=== PATIENT | male | born 1950 | race Caucasian/White ===

== ENCOUNTER 2018-09-14 07:11 | Emergency (ER) | payer MEDICARE, OTHER ==
--- NOTE | 2018-09-14 07:18 | ED Physician Documentation ---
PD HPI CHEST PAIN - Stated complaint Stated Complaint: CHEST PX - History obtained from History obtained from: Patient - History of Present Illness Timing - onset: How many hours ago (4 1/2), Last night (about 3 am) Timing - onset during: Sleep Timing - duration: Hours Timing - details: Abrupt onset, Still present Quality: Pressure, Tightness, Other (like prior episodes of recurrent atrial fib) Location: Substernal, Left chest Radiation: No: Jaw, Neck, Back Worsened by: No: Exertion, Inspiration, Movement Associated symptoms: Palpitations (feels heart rate was abruptly fast.). No: Shortness of air, Nausea, Feeling faint / dizzy Similar symptoms before: Diagnosis (episodic atrial fib, with last episode 2014, initially in 2006. Has only had it a few times.) Recently seen: Not recently seen Review of Systems Constitutional: denies: Fever, Chills, Myalgias Nose: denies: Rhinorrhea / runny nose, Congestion Throat: denies: Sore throat Respiratory: denies: Cough GI: denies: Abdominal Pain, Nausea, Vomiting, Constipation, Diarrhea Musculoskeletal: reports: Extremity swelling (mild chronic both legs). denies: Neck pain, Back pain Neurologic: denies: Generalized weakness, Near syncope PD PAST MEDICAL HISTORY - Past Medical History Cardiovascular: Atrial fibrillation Respiratory: None Neuro: None Endocrine/Autoimmune: HyPOthyroidism GI: GERD : None HEENT: None Psych: None Musculoskeletal: Chronic back pain Derm: None - Present Medications Home Medications: Ambulatory Orders Medication Instructions Recorded Confirmed buPROPion [Wellbutrin Sr] 150 mg PO BID 05/03/14 05/03/14 - Allergies Allergies/Adverse Reactions: Allergies Allergy/AdvReac Type Severity Reaction Status Date / Time No Known Drug Allergies Allergy Verified 09/14/18 07:19 - Social History Does the pt smoke?: Yes Smoking Status: Current every day smoker PD ED PE NORMAL - Vitals Vital signs reviewed: Yes - General General: Alert and oriented X 3, No acute distress, Well developed/nourished - HEENT HEENT: Pharynx benign - Neck Neck: Supple, no meningeal sign, No adenopathy - Cardiac Cardiac: No murmur. No: RRR (very regular at 122.) - Respiratory Respiratory: Clear bilaterally - Abdomen Abdomen: Soft, Non tender - Derm Derm: Normal color, Warm and dry - Extremities Extremities: No deformity, No tenderness to palpate, Normal ROM s pain, No calf tenderness / cord, Other (1+ edema in both lower legs/ankles, not tender. ) - Neuro Neuro: Alert and oriented X 3, No motor deficit, Normal speech Results - Vitals Vitals: Vital Signs - 24 hr 09/14/18 09/14/18 09/14/18 07:15 08:34 08:50 Temperature 36.3 C L 36.2 C L Heart Rate 118 H 110 H 108 H Respiratory 20 22 17 Rate Blood Pressure 115/63 109/46 L 114/66 O2 Saturation 96 95 97 09/14/18 09/14/18 09:01 09:11 Temperature Heart Rate 107 H 68 Respiratory 17 27 H Rate Blood Pressure 120/91 H 105/75 O2 Saturation 96 94 Oxygen O2 Source Room air - EKG (time done) 07:23 Rate: Rate (enter#) (123) Rhythm: Atrial flutter Ischemia: Normal ST segments. No: ST elevation c/w ischemia, ST depression - Labs Labs: Laboratory Tests 09/14/18 09/14/18 09/14/18 07:30 07:30 07:30 WBC 5.9 RBC 5.28 Hgb 16.9 Hct 48.6 MCV 92.0 MCH 32.0 H MCHC 34.7 RDW 13.8 Plt Count 126 L MPV 10.6 Neut # (Auto) 4.0 Lymph # (Auto) 1.1 L Starke # (Auto) 0.7 Eos # (Auto) 0.1 Baso # (Auto) 0.1 Absolute Nucleated RBC 0.00 Nucleated RBC % 0.1 Manual Slide Review Indicated WBC Morphology NORMAL APPEARANCE Platelet Estimate DECREASED (<130,000) Platelet Morphology 1+ LARGE PLATELETS RBC Morph Micro Appear NORMAL APPEARANCE Sodium 139 Potassium 4.2 Chloride 103 Carbon Dioxide 24 Anion Gap 12.0 BUN 20 Creatinine 0.9 Estimated GFR (MDRD) 84 L Glucose 99 Calcium 9.3 Magnesium 2.2 Total Bilirubin 1.4 H AST 40 ALT 41 Alkaline Phosphatase 37 L Troponin I < 0.04 B-Natriuretic Peptide Total Protein 7.2 Albumin 3.9 Globulin 3.3 Albumin/Globulin Ratio 1.2 Lipase 32 09/14/18 07:30 WBC RBC Hgb Hct MCV MCH MCHC RDW Plt Count MPV Neut # (Auto) Lymph # (Auto) Starke # (Auto) Eos # (Auto) Baso # (Auto) Absolute Nucleated RBC Nucleated RBC % Manual Slide Review WBC Morphology Platelet Estimate Platelet Morphology RBC Morph Micro Appear Sodium Potassium Chloride Carbon Dioxide Anion Gap BUN Creatinine Estimated GFR (MDRD) Glucose Calcium Magnesium Total Bilirubin AST ALT Alkaline Phosphatase Troponin I B-Natriuretic Peptide 269 H Total Protein Albumin Globulin Albumin/Globulin Ratio Lipase - Rads (name of study) chest xray Radiology: Prelim report reviewed (no infiltrates nor acute process. ), See rad report PD MEDICAL DECISION MAKING - ED course Complexity details: reviewed results, re-evaluated patient, considered differential (heart rate slowed to under 100. Then targeted rhythm control and gave procainamide. He converted to NSR about 15 minutes into the infusion, and it was discontinued. He is stable and feels okay. ), d/w patient Departure - Departure Disposition: 01 Home, Self Care Clinical Impression: Episodic atrial fibrillation Condition: Stable Record reviewed to determine appropriate education?: Yes Instructions: ED Afib Follow-Up: DIMPLE BEDOYA DO [Primary Care Provider] - Comments: Follow-up with your primary care as they will likely want to do a outpatient heart monitor which will record your rhythm over 3 to 7 days and see if you have episodes of fibrillation you not aware of. If so they can do other treatments or potentially have you on medications to keep it from recurring. If your episodes are years apart as the current pattern, then no particular reason for daily medications per se. Discharge Date/Time: 09/14/18 10:00
[2018-09-14] MEDS ORDERED: SODIUM CHLORIDE 0.9% 1,000 ML IV ONE (07:38)
[2018-09-14] MEDS ORDERED: METOPROLOL 5 MG/5 ML VIAL IVP STA (07:38)
[2018-09-14] MEDS ORDERED: MAG HYDROX/AL HYDROX/SIMETH 30 ML UDC PO STA (07:39)
[2018-09-14 07:48] LABS: BASOPHILS # (AUTO) 0.1 10^3/uL (0.0-0.1); BASOPHILS % (AUTO) 1.2 %; EOSINOPHILS # (AUTO) 0.1 10^3/uL (0.0-0.7); EOSINOPHILS % (AUTO) 1.7 %; HGB - HEMOGLOBIN 16.9 g/dL (14.0-18.0); LYMPHOCYTES # (AUTO) 1.1 10^3/uL (1.5-3.5); LYMPHOCYTES % (AUTO) 18.1 %; MEAN CORPUSCULAR HGB CONC 34.7 g/dL (32.0-36.0); MEAN PLATELET VOLUME 10.6 fL (7.4-11.4); MONOCYTES # (AUTO) 0.7 10^3/uL (0.0-1.0); MONOCYTES % (AUTO) 11.2 %; NEUTROPHILS % (AUTO) 67.8 %; PLT - PLATELET COUNT 126 10^3/uL (130-450); RED BLOOD COUNT 5.28 10^6/uL (4.70-6.10); RED CELL DISTRIBUTION WIDTH 13.8 % (12.0-15.0); WHITE BLOOD COUNT 5.9 x10^3/uL (4.8-10.8)
[2018-09-14 07:56] LABS: ALBUMIN 3.9 g/dL (3.2-5.5); ALBUMIN/GLOBULIN RATIO 1.2 (1.0-2.2); BILIRUBIN,TOTAL 1.4 mg/dL (0.2-1.0); CALCIUM 9.3 mg/dL (8.5-10.3); CREATININE 0.9 mg/dL (0.6-1.2); MAGNESIUM 2.2 mg/dL (1.7-2.8); TOTAL PROTEIN 7.2 g/dL (6.7-8.2)
[2018-09-14] MEDS ORDERED: PROCAINAMIDE 1,000 MG in SODIUM CHLORIDE 0.9% 240 ML IV STA (08:14)
[2018-09-14 08:22] LABS: PLATELET ESTIMATE, MANUAL DECREASED (<130,000) (NORMAL); PLATELET MORPHOLOGY 1+ LARGE PLATELETS (NORMAL); RBC MORPHOLOGY (MULTIPLE) NORMAL APPEARANCE (NORMAL)
--- NOTE | 2018-09-14 08:25 | XRAY Report ---
Reason: chest pain Procedure Date: 09/14/2018 Accession Number: [id number] / [id number] Procedure: XR - Chest 1 View X-Ray CPT Code: 32802 FULL RESULT: EXAM: CHEST RADIOGRAPHY EXAM DATE: 09/14/2018 08:08 AM. CLINICAL HISTORY: Chest pain. COMPARISON: None. TECHNIQUE: Upright AP view. The patient is minimally rotated toward the left. FINDINGS: Lungs/Pleura: No focal opacities evident. No interstitial abnormality. No pleural effusion. No pneumothorax. Mediastinum: Within exam limitations, the cardiomediastinal contour is normal. Other: None. IMPRESSION: Normal single view chest. RADIA
[2018-09-14 09:12] VITALS: BP 105/75
== END 2018-09-14 10:00 | disposition home or self-care (01) ==
LOC: ED 07:11
DX: I48.91 Unspecified atrial fibrillation (principal); I48.92 Unspecified atrial flutter; I45.81 Long QT syndrome; R60.0 Localized edema; F17.200 Nicotine dependence, unspecified, uncomplicated
CPT/HCPCS: 36415; 71045; 80053; 83690; 83735; 83880; 84484; 85025; 93005; 96365; 99283; 99284; A9270; J2690

== ENCOUNTER 2019-01-26 16:30 | Emergency (ER) | payer MEDICARE, OTHER ==
[2019-01-26 16:38] VITALS: BP 143/47
[2019-01-26] MEDS ORDERED: predniSONE 20 MG TABLET PO STA (18:03)
--- NOTE | 2019-01-26 18:05 | ED Physician Documentation ---
PD HPI HEENT - Stated complaint Stated Complaint: R EAR PX - Chief complaint Chief Complaint: Heent - History obtained from History obtained from: Patient - History of Present Illness Timing - onset: How many weeks ago (1) Timing - duration: Weeks (1) Timing - details: Gradual onset Pain level max: 4 Pain level now: 3 Location: Right ear Improves: Nothing Worsens: Other (nothing) Associated symptoms: No: Fever, Congestion, Rhinorrhea, Trismus, Unable to swallow, Swollen nodes, Facial swelling, Headache, Cough Recently seen: Clinic (Seen [facility]. Started on afrin and a "small white pill". Does not know what this is.) Review of Systems Constitutional: denies: Fever, Chills GI: denies: Vomiting, Diarrhea Skin: denies: Rash Musculoskeletal: denies: Neck pain, Back pain Neurologic: denies: Headache PD PAST MEDICAL HISTORY - Past Medical History Cardiovascular: Atrial fibrillation Respiratory: None Neuro: None Endocrine/Autoimmune: HyPOthyroidism GI: GERD : None HEENT: None Psych: None Musculoskeletal: Chronic back pain Derm: None - Present Medications Home Medications: Ambulatory Orders Medication Instructions Recorded Confirmed buPROPion [Wellbutrin Sr] 150 mg PO BID 05/03/14 05/03/14 predniSONE [Prednisone] 40 mg PO DAILY #10 tablet 01/26/19 - Allergies Allergies/Adverse Reactions: Allergies Allergy/AdvReac Type Severity Reaction Status Date / Time No Known Drug Allergies Allergy Verified 01/26/19 16:34 - Social History Does the pt smoke?: Yes Smoking Status: Current every day smoker PD ED PE NORMAL - Vitals Vital signs reviewed: Yes - General General: Alert and oriented X 3, No acute distress - HEENT HEENT: Moist mucous membranes, Pharynx benign, Other (Left ear is normal. Right TM is retracted. No fluid. No evidence of infection) - Neck Neck: Supple, no meningeal sign, No adenopathy - Cardiac Cardiac: RRR - Respiratory Respiratory: No respiratory distress, Clear bilaterally - Derm Derm: Warm and dry, No rash - Extremities Extremities: No edema - Neuro Neuro: Alert and oriented X 3 Results - Vitals Vitals: Vital Signs - 24 hr 01/26/19 16:34 Temperature 37 C Heart Rate 88 Respiratory 15 Rate Blood Pressure 143/47 H O2 Saturation 95 Oxygen O2 Source Room air PD MEDICAL DECISION MAKING - ED course Complexity details: considered differential, d/w patient ED course: Patient with apparent eustachian tube dysfunction. Will place on steroids. We will have him follow-up with his doctor for further care. It sounds as if he is already on pseudoephedrine. Patient counseled regarding signs and symptoms for which I believe and urgent re-evaluation would be necessary. Patient with good understanding of and agreement to plan and is comfortable going home at this time This document was made in part using voice recognition software. While efforts are made to proofread this document, sound alike and grammatical errors may occur. Departure - Departure Disposition: Home, Self Care Clinical Impression: Eustachian tube dysfunction Qualifiers: Laterality: right Qualified Code(s): H69.81 - Other specified disorders of Eustachian tube, right ear Condition: Good Instructions: Middle Ear Probs Dx Follow-Up: DIMPLE BEDOYA DO [Primary Care Provider] - Within 1 week Prescriptions: predniSONE [Prednisone] 40 mg PO DAILY #10 tablet Comments: You appear to be having dysfunction of your eustachian tube. Continue the current medications, will add a small dose of steroids and see if this helps. Follow-up with your doctor for further care. Discharge Date/Time: 01/26/19 18:10
== END 2019-01-26 18:10 | disposition home or self-care (01) ==
LOC: ED 16:30
DX: H69.81 Other specified disorders of Eustachian tube, right ear (principal); F17.200 Nicotine dependence, unspecified, uncomplicated
CPT/HCPCS: 99282; 99284; J7512

== ENCOUNTER 2019-02-04 18:59 | Emergency (ER) | payer MEDICARE, OTHER ==
--- NOTE | 2019-02-04 20:34 | ED Physician Documentation ---
History of Present Illness - Stated complaint Stated Complaint: DIZZY, NAUSEOUS - Chief complaint Chief Complaint: General - History obtained from History obtained from: Patient - History of Present Illness Timing: Enter time (17:30), Today Pain level max: 0 Pain level now: 0 Improved by: lying down, sitting still Worsened by: ambulating, standing - Additonal information Additional information: c/o sudden onset dizziness with nausea at 5:30 PM today. has not had similar symptoms before. he cannot describe his symptoms beyond dizziness, feeling dizzy. Review of Systems Constitutional: reports: Reviewed and negative Eyes: reports: Reviewed and negative Ears: reports: Reviewed and negative Nose: reports: Reviewed and negative Cardiac: reports: Reviewed and negative Respiratory: reports: Reviewed and negative GI: reports: Nausea. denies: Abdominal Pain, Vomiting PD PAST MEDICAL HISTORY - Past Medical History Past Medical History: Yes Cardiovascular: Atrial fibrillation Respiratory: None Neuro: None Endocrine/Autoimmune: HyPOthyroidism GI: GERD : None HEENT: None Psych: None Musculoskeletal: Chronic back pain Derm: None - Past Surgical History Past Surgical History: Yes - Present Medications Home Medications: Ambulatory Orders Medication Instructions Recorded Confirmed buPROPion [Wellbutrin Sr] 150 mg PO BID 05/03/14 05/03/14 predniSONE [Prednisone] 40 mg PO DAILY #10 tablet 01/26/19 Meclizine [Antivert] 25 mg PO Q6H PRN #14 tablet 02/04/19 - Allergies Allergies/Adverse Reactions: Allergies Allergy/AdvReac Type Severity Reaction Status Date / Time No Known Drug Allergies Allergy Verified 02/04/19 19:10 - Social History Does the pt smoke?: Yes Smoking Status: Current every day smoker Does the pt drink ETOH?: Yes Does the pt have substance abuse?: No - Immunizations Immunizations are current?: No - POLST Patient has POLST: No PD ED PE NORMAL - Vitals Vital signs reviewed: Yes - General General: Alert and oriented X 3, No acute distress, Well developed/nourished - HEENT HEENT: PERRL, EOMI, Ears normal, Moist mucous membranes - Neck Neck: Supple, no meningeal sign - Cardiac Cardiac: RRR, No murmur - Respiratory Respiratory: No respiratory distress, Clear bilaterally - Abdomen Abdomen: Soft, Non tender - Derm Derm: Normal color, Warm and dry - Extremities Extremities: No edema - Neuro Neuro: Alert and oriented X 3, post anesthesia nurse 2-12 intact, No motor deficit, No sensory deficit, Normal speech Eye Opening: Spontaneous Motor: Obeys Commands Verbal: Oriented GCS Score: 15 Results - Vitals Vitals: Oxygen O2 Source Room air - EKG (time done) No standard instances Rate: Rate (enter#) (75) Rhythm: NSR Nancy: LAD Intervals: Normal NE QRS: Normal Ischemia: Normal ST segments, Q waves (II, III, aVF, V2-V6) Compare to prior EKG: Unchanged from prior EKG - Labs Labs: Laboratory Tests 02/04/19 02/04/19 20:53 20:53 WBC 10.4 RBC 5.65 Hgb 17.9 Hct 52.7 H MCV 93.3 MCH 31.7 H MCHC 34.0 RDW 12.9 Plt Count 126 L MPV 10.9 Neut # (Auto) 8.1 H Lymph # (Auto) 1.3 L Amelia # (Auto) 0.8 Eos # (Auto) 0.1 Baso # (Auto) 0.0 Absolute Nucleated RBC 0.00 Nucleated RBC % 0.0 Sodium 136 Potassium 4.7 Chloride 100 L Carbon Dioxide 27 Anion Gap 9.0 BUN 22 H Creatinine 1.1 Estimated GFR (MDRD) 66 L Glucose 135 H Calcium 9.1 Total Bilirubin 1.9 H AST 28 ALT 29 Alkaline Phosphatase 45 Total Protein 7.1 Albumin 3.8 Globulin 3.3 Albumin/Globulin Ratio 1.2 Lipase 30 PD MEDICAL DECISION MAKING - ED course Complexity details: reviewed results, re-evaluated patient, considered differential, d/w patient Departure - Departure Disposition: 01 Home, Self Care Clinical Impression: Dizziness Condition: Good Instructions: ED Dizziness UKO, Meclizine Follow-Up: DIMPLE BEDOYA DO [Primary Care Provider] - Prescriptions: Meclizine [Antivert] 25 mg PO Q6H PRN #14 tablet PRN Reason: Dizziness Discharge Date/Time: 02/04/19 22:46
[2019-02-04 20:37] VITALS: BP 101/64
[2019-02-04] MEDS ORDERED: SODIUM CHLORIDE 0.9% 1,000 ML IV STA (20:50)
[2019-02-04] MEDS ORDERED: ONDANSETRON 4 MG/2 ML VIAL IVP STA (20:51)
[2019-02-04] MEDS ORDERED: MECLIZINE 12.5 MG TABLET PO STA (20:52)
[2019-02-04 21:01] LABS: BASOPHILS % (AUTO) 0.4 %; EOSINOPHILS # (AUTO) 0.1 10^3/uL (0.0-0.7); HGB - HEMOGLOBIN 17.9 g/dL (14.0-18.0); LYMPHOCYTES # (AUTO) 1.3 10^3/uL (1.5-3.5); LYMPHOCYTES % (AUTO) 12.5 %; MEAN CORPUSCULAR HEMOGLOBIN 31.7 pg (27.0-31.0); MEAN CORPUSCULAR VOLUME 93.3 fL (80.0-94.0); MEAN PLATELET VOLUME 10.9 fL (7.4-11.4); MONOCYTES # (AUTO) 0.8 10^3/uL (0.0-1.0); MONOCYTES % (AUTO) 7.4 %; NEUTROPHILS # (AUTO) 8.1 10^3/uL (1.5-6.6); NEUTROPHILS % (AUTO) 77.9 %; PLT - PLATELET COUNT 126 10^3/uL (130-450); RED BLOOD COUNT 5.65 10^6/uL (4.70-6.10); RED CELL DISTRIBUTION WIDTH 12.9 % (12.0-15.0); WHITE BLOOD COUNT 10.4 x10^3/uL (4.8-10.8)
[2019-02-04 21:11] LABS: ALBUMIN 3.8 g/dL (3.2-5.5); ALBUMIN/GLOBULIN RATIO 1.2 (1.0-2.2); BILIRUBIN,TOTAL 1.9 mg/dL (0.2-1.0); CALCIUM 9.1 mg/dL (8.5-10.3); CREATININE 1.1 mg/dL (0.6-1.2); TOTAL PROTEIN 7.1 g/dL (6.7-8.2)
--- NOTE | 2019-02-04 21:21 | XRAY Report ---
Reason: dizziness Procedure Date: 02/04/2019 Accession Number: [id number] / [id number] Procedure: XR - Chest 2 View X-Ray CPT Code: 57240 Final Report FULL RESULT: EXAM: CHEST RADIOGRAPHY EXAM DATE: 02/04/2019 09:04 PM. CLINICAL HISTORY: Dizziness. COMPARISON: CHEST 1 VIEW 09/14/2018 7:56 AM. TECHNIQUE: 2 views. FINDINGS: Lungs/Pleura: No focal opacities evident. No pleural effusion. No pneumothorax. Normal volumes. Mediastinum: Heart and mediastinal contours are unremarkable. Other: None. IMPRESSION: No acute infiltrates. RADIA
== END 2019-02-04 22:46 | disposition home or self-care (01) ==
LOC: ED 18:59
DX: R42 Dizziness and giddiness (principal); E03.9 Hypothyroidism, unspecified; R94.31 Abnormal electrocardiogram [ECG] [EKG]; F17.200 Nicotine dependence, unspecified, uncomplicated
CPT/HCPCS: 36415; 71046; 80053; 83690; 85025; 93005; 96361; 96374; 99284; A9270

== ENCOUNTER 2019-12-02 10:55 | Emergency (ER) | payer MEDICARE, OTHER ==
--- NOTE | 2019-12-02 12:33 | ED Physician Documentation ---
History of Present Illness - Stated complaint Stated Complaint: RT HAND INJ - Chief complaint Chief Complaint: Ext Problem - History obtained from History obtained from: Patient - History of Present Illness Timing: Today Pain level max: 3 Pain level now: 2 - Additonal information Additional information: 69 year old male, right handed with trip and fall today at home. Landed on R hand. States has R hand pain. no wrist, elbow, arm pain. No neck or back pain. Did not hit his head. Worse with movement and better with rest. Review of Systems GI: denies: Vomiting Musculoskeletal: denies: Neck pain, Back pain Neurologic: denies: Focal weakness, Numbness, Head injury PD PAST MEDICAL HISTORY - Past Medical History Cardiovascular: Atrial fibrillation Respiratory: None Neuro: None Endocrine/Autoimmune: HyPOthyroidism GI: GERD : None HEENT: None Psych: None Musculoskeletal: Chronic back pain Derm: None - Past Surgical History Past Surgical History: Yes - Present Medications Home Medications: Ambulatory Orders Medication Instructions Recorded Confirmed buPROPion [Wellbutrin Sr] 150 mg PO BID 05/03/14 05/03/14 predniSONE [Prednisone] 40 mg PO DAILY #10 tablet 01/26/19 Meclizine [Antivert] 25 mg PO Q6H PRN #14 tablet 02/04/19 - Allergies Allergies/Adverse Reactions: Allergies Allergy/AdvReac Type Severity Reaction Status Date / Time No Known Drug Allergies Allergy Verified 12/02/19 11:00 - Social History Does the pt smoke?: Yes Smoking Status: Current every day smoker Does the pt drink ETOH?: Yes Does the pt have substance abuse?: No - Immunizations Immunizations are current?: No - POLST Patient has POLST: No PD ED PE NORMAL - Vitals Vital signs reviewed: Yes - General General: Alert and oriented X 3, No acute distress - HEENT HEENT: Atraumatic, PERRL, Moist mucous membranes - Neck Neck: Supple, no meningeal sign, No bony TTP - Cardiac Cardiac: RRR - Respiratory Respiratory: No respiratory distress, Clear bilaterally - Back Back: No spinal TTP - Derm Derm: Warm and dry - Extremities Extremities: Other (mild TTP over the R 5th MC. No swelling or deformity. NVI. O/w normal exam of the hand and wrist. no snuffbox tenderness.) - Neuro Neuro: Alert and oriented X 3, oriental medicine practitioner 2-12 intact, No motor deficit, No sensory deficit, Normal speech Results - Vitals Vitals: Vital Signs - 24 hr 12/02/19 12/02/19 12/02/19 10:59 11:21 13:20 Temperature 36.9 C 36.9 C 36.5 C Heart Rate 71 70 71 Respiratory 14 16 16 Rate Blood Pressure 148/67 H 148/66 H 136/66 H O2 Saturation 97 96 98 Oxygen O2 Source Room air - Rads (name of study) R hand xray Radiology: Prelim report reviewed, EMP read contemporaneously, See rad report (No acute abnormality) PD MEDICAL DECISION MAKING - ED course Complexity details: reviewed results, re-evaluated patient, considered differential, d/w patient ED course: No acute findings on x-ray. We will continue supportive care and have him follow-up with his doctor for repeat evaluation if he is still having pain in 1 week. Patient counseled regarding signs and symptoms for which I believe and urgent re-evaluation would be necessary. Patient with good understanding of and agreement to plan and is comfortable going home at this time This document was made in part using voice recognition software. While efforts are made to proofread this document, sound alike and grammatical errors may occur. Departure - Departure Disposition: 01 Home, Self Care Clinical Impression: Contusion of right hand Qualifiers: Encounter type: initial encounter Qualified Code(s): S60.221A - Contusion of right hand, initial encounter Condition: Good Instructions: ED Sprain Hand Follow-Up: IDMPLE BEDOYA DO [Primary Care Provider] - As Needed Comments: Your x-ray does not show any acute fractures today. Follow-up with your doctor in 1 week if you are still having pain. Return if you worsen Discharge Date/Time: 12/02/19 13:21
--- NOTE | 2019-12-02 12:44 | XRAY Report ---
PROCEDURE: Hand 3 View RT INDICATIONS: R hand pain s/p fall TECHNIQUE: 3 views of the hand(s) acquired. COMPARISON: No previous study is available for comparison. FINDINGS: Bones: No acute fractures or dislocations. No suspicious bony lesions. Soft tissues: No suspicious soft tissue calcifications. IMPRESSION: No acute fracture is identified. If there is suspicion for an occult fracture, repeat radiographs may be obtained in 7-10 days for further evaluation. Reviewed by: Fabian Brunner MD on 12/02/2019 12:43 PM PDT Approved by: Fabian Brunner MD on 12/02/2019 12:43 PM PDT Station ID: [id number]
[2019-12-02 13:21] VITALS: BP 136/66
== END 2019-12-02 13:21 | disposition home or self-care (01) ==
LOC: ED 10:55
DX: S60.221A Contusion of right hand, initial encounter (principal); W01.0XXA Fall on same level from slipping, tripping and stumbling without subsequent striking against object, initial encounter; Y92.009 Unspecified place in unspecified non-institutional (private) residence as the place of occurrence of the external cause; F17.200 Nicotine dependence, unspecified, uncomplicated
CPT/HCPCS: 99282; 99283

== ENCOUNTER 2020-12-05 21:49 | Outpatient (CLI) | payer MEDICARE, OTHER | END 2020-12-05 21:50 | disposition critical access hospital (66) | LOC: EMS 21:49 | DX: R07.89 Other chest pain (principal); R06.02 Shortness of breath | CPT/HCPCS: A0425; A0427 ==

== ENCOUNTER 2020-12-05 22:08 | Emergency (ER) | payer MEDICARE, OTHER ==
[2020-12-05 22:46] LABS: BASOPHILS % (AUTO) 0.6 %; EOSINOPHILS # (AUTO) 0.1 10^3/uL (0.0-0.7); EOSINOPHILS % (AUTO) 2.3 %; HCT - HEMATOCRIT 44.4 % (42.0-52.0); HGB - HEMOGLOBIN 15.2 g/dL (14.0-18.0); LYMPHOCYTES # (AUTO) 1.2 10^3/uL (1.5-3.5); LYMPHOCYTES % (AUTO) 22.6 %; MEAN CORPUSCULAR HEMOGLOBIN 32.1 pg (27.0-31.0); MEAN CORPUSCULAR HGB CONC 34.2 g/dL (32.0-36.0); MEAN CORPUSCULAR VOLUME 93.7 fL (80.0-94.0); MEAN PLATELET VOLUME 11.6 fL (7.4-11.4); MONOCYTES # (AUTO) 0.8 10^3/uL (0.0-1.0); MONOCYTES % (AUTO) 14.9 %; NEUTROPHILS # (AUTO) 3.2 10^3/uL (1.5-6.6); NEUTROPHILS % (AUTO) 59.4 %; PLT - PLATELET COUNT 122 10^3/uL (130-450); RED BLOOD COUNT 4.74 10^6/uL (4.70-6.10); RED CELL DISTRIBUTION WIDTH 13.4 % (12.0-15.0); WHITE BLOOD COUNT 5.3 x10^3/uL (4.8-10.8)
[2020-12-05 22:59] LABS: ALBUMIN 3.1 g/dL (3.2-5.5); ALBUMIN/GLOBULIN RATIO 1.1 (1.0-2.2); BILIRUBIN,TOTAL 1.1 mg/dL (0.2-1.0); CREATININE 0.8 mg/dL (0.6-1.2); POTASSIUM 3.8 mmol/L (3.5-5.0)
[2020-12-05] MEDS ORDERED: diltiaZEM INJ 5 MG/ML VIAL IVP STA (23:03)
--- NOTE | 2020-12-05 23:17 | ED Physician Documentation ---
PD HPI CHEST PAIN - Stated complaint Stated Complaint: SOA/ AFIB - Chief complaint Chief Complaint: Cardiac - History obtained from History obtained from: Patient, EMS - Additional information Additional information: Patient comes emergency department via EMS for chief complaint of shortness of breath, palpitations, and chest discomfort that started this evening. Medics state patient had a heart rate initially in the 160s and that they were going to give diltiazem, but held off because the patient's heart rate was coming down quite a bit on its own. His heart rate is now in the 90s to 120s. He states he feels a lot better. The patient has a history of a prior diagnosis of atrial fibrillation which seems to have been paroxysmal. No history of [place]. The patient is not sure if he is on any medication for atrial fibrillation. Patient denies any radiation of his chest pain. He describes it now as a 1 out of 10 pressure. He states his shortness of breath has resolved. No recent fever co ugh. No nausea associated with the symptoms. He states symptoms have been ongoing for approximately 2 hours. No other complaints at this time. Review of Systems Ten Systems: 10 systems reviewed and negative Constitutional: reports: Reviewed and negative Eyes: reports: Reviewed and negative Ears: reports: Reviewed and negative Nose: reports: Reviewed and negative Throat: reports: Reviewed and negative Cardiac: reports: Chest pain / pressure, Palpitations Respiratory: reports: Dyspnea GI: reports: Reviewed and negative : reports: Reviewed and negative Skin: reports: Reviewed and negative Musculoskeletal: reports: Reviewed and negative Neurologic: reports: Reviewed and negative Psychiatric: reports: Reviewed and negative Endocrine: reports: Reviewed and negative Immunocompromised: reports: Reviewed and negative PD PAST MEDICAL HISTORY - Past Medical History Past Medical History: Yes Cardiovascular: Atrial fibrillation Respiratory: None Neuro: None Endocrine/Autoimmune: HyPOthyroidism GI: GERD : None HEENT: None Psych: None Musculoskeletal: Chronic back pain Derm: None - Past Surgical History Past Surgical History: Yes - Present Medications Home Medications: Ambulatory Orders Medication Instructions Recorded Confirmed Ergocalciferol (Vitamin D2) 12/06/20 [Vitamin D2] Levothyroxine Sodium [Synthroid] 100 mcg PO DAILY 12/06/20 12/06/20 Omeprazole 40 mg PO DAILY 12/06/20 12/06/20 diltiaZEM [Cardizem] 60 mg PO BID #30 tablet 12/06/20 - Allergies Allergies/Adverse Reactions: Allergies Allergy/AdvReac Type Severity Reaction Status Date / Time No Known Drug Allergies Allergy Verified 12/05/20 22:21 - Social History Does the pt smoke?: Yes Smoking Status: Current every day smoker Does the pt drink ETOH?: Yes Does the pt have substance abuse?: No - Immunizations Immunizations are current?: No - POLST Patient has POLST: No PD ED PE NORMAL - Vitals Vital signs reviewed: Yes - General General: Alert and oriented X 3, No acute distress, Well developed/nourished - HEENT HEENT: Atraumatic, PERRL, EOMI, Moist mucous membranes - Neck Neck: Supple, no meningeal sign - Cardiac Cardiac: No murmur, Other (Irregular rate and rhythm) - Respiratory Respiratory: No respiratory distress, Clear bilaterally - Abdomen Abdomen: Soft, Non tender, Non distended - Derm Derm: Normal color, Warm and dry, No rash - Extremities Extremities: No deformity, No edema, No calf tenderness / cord - Neuro Neuro: Alert and oriented X 3, director of online 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 2-12 intact, No motor deficit, No sensory deficit, Normal speech, Other (Grossly normal) - Psych Psych: Normal mood, Normal affect Results - Vitals Vitals: Oxygen O2 Source Room air - EKG (time done) 0308 Rate: Rate (enter#) (87) Rhythm: NSR [place]: LAD Intervals: Normal [place] QRS: Normal Ischemia: Normal ST segments Compare to prior EKG: Old EKG unavailable Computer interpretation: Agree with computer - Labs Labs: Laboratory Tests 12/05/20 12/05/20 12/05/20 22:40 22:40 22:40 WBC 5.3 RBC 4.74 Hgb 15.2 Hct 44.4 MCV 93.7 MCH 32.1 H MCHC 34.2 RDW 13.4 Plt Count 122 L MPV 11.6 H Neut # (Auto) 3.2 Lymph # (Auto) 1.2 L [place] # (Auto) 0.8 Eos # (Auto) 0.1 Baso # (Auto) 0.0 Absolute Nucleated RBC 0.00 Nucleated RBC % 0.0 Sodium 138 Potassium 3.8 Chloride 107 Carbon Dioxide 22 Anion Gap 9.0 BUN 26 H Creatinine 0.8 Estimated GFR (MDRD) 95 Glucose 118 H Calcium 9.0 Total Bilirubin 1.1 H AST 50 H ALT 44 Alkaline Phosphatase 55 Troponin I High Sens 4.5 B-Natriuretic Peptide Total Protein 6.0 L Albumin 3.1 L Globulin 2.9 Albumin/Globulin Ratio 1.1 Lipase 35 12/05/20 22:40 WBC RBC Hgb Hct MCV MCH MCHC RDW Plt Count MPV Neut # (Auto) Lymph # (Auto) [place] # (Auto) Eos # (Auto) Baso # (Auto) Absolute Nucleated RBC Nucleated RBC % Sodium Potassium Chloride Carbon Dioxide Anion Gap BUN Creatinine Estimated GFR (MDRD) Glucose Calcium Total Bilirubin AST ALT Alkaline Phosphatase Troponin I High Sens B-Natriuretic Peptide 112 H Total Protein Albumin Globulin Albumin/Globulin Ratio Lipase - Rads (name of study) Chest x-ray Radiology: Final report received, EMP read indepedently, See rad report (Negative) PD MEDICAL DECISION MAKING - ED course Complexity details: reviewed old records, reviewed results, re-evaluated patient, considered differential, d/w patient ED course: The patient continued to improve in the emergency department and spontaneously converted to normal sinus rhythm before he was able to receive the IV diltiazem that had been ordered for him. Labs, including troponin were normal. The patient was stable for discharge. We have discussed the usual indications for return and also the indications for follow-up. Departure - Departure Disposition: 01 Home, Self Care Clinical Impression: Paroxysmal atrial fibrillation with rapid ventricular response Condition: Stable Instructions: ED Afib Comments: You were found to be in an abnormal rhythm called atrial fibrillation this evening. While you were in this rhythm, your heart rate was too fast. However, you have converted back to a normal rhythm and a normal rate. Please continue your home medications and follow-up with your primary doctor to discuss any further concerns. Your labs tonight show no evidence of a heart attack or any other emergent problem. Discharge Date/Time: 12/05/20 23:32
[2020-12-05 23:18] VITALS: BP 99/67
--- NOTE | 2020-12-06 08:21 | XRAY Report ---
PROCEDURE: Chest 1 View X-Ray INDICATIONS: Chest Pain TECHNIQUE: One view of the chest was acquired. COMPARISON: 02/04/2019 FINDINGS: Surgical changes and devices: None. Lungs and pleura: No pleural effusions or pneumothorax. Lungs are clear. Mediastinum: Mediastinal contours appear normal. Heart size is normal. Bones and chest wall: No suspicious bony lesions. Overlying soft tissues appear unremarkable. IMPRESSION: No acute cardiopulmonary disease process. Reviewed by: Imani Ramirez MD, PhD on 12/06/2020 8:20 AM PDT Approved by: Imani Ramirez MD, PhD on 12/06/2020 8:20 AM PDT Station ID: [id number]
== END 2020-12-05 23:32 | disposition home or self-care (01) ==
LOC: EDBD → ED 22:08 → SUPCPDRO 22:08 → ED 23:32
DX: I48.0 Paroxysmal atrial fibrillation (principal); F17.200 Nicotine dependence, unspecified, uncomplicated
CPT/HCPCS: 36415; 80053; 83690; 83880; 84484; 85025; 93005; 99284

== ENCOUNTER 2020-12-06 02:18 | Emergency (ER) | payer MEDICARE, OTHER ==
[2020-12-06] MEDS ORDERED: SODIUM CHLORIDE 0.9% 1,000 ML IV STA (02:20)
[2020-12-06] MEDS ORDERED: diltiaZEM 30 MG TABLET PO STA (03:35)
--- NOTE | 2020-12-06 03:47 | ED Physician Documentation ---
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 Medics state pt had a HR initially in the 160's, and that they were going to give diltiazem, but held off because the pt's HR was coming down quite a bit on its own. Pt's HR is now 90-120. Pt states he feels a lot better. He has a prior dx of atrial fib, which sounds paroxysmal. No CO. He is not sure if he is on any medication for atrial fib. Review of Systems Ten Systems: 10 systems reviewed and negative Constitutional: reports: Reviewed and negative Eyes: reports: Reviewed and negative Ears: reports: Reviewed and negative Nose: reports: Reviewed and negative Throat: reports: Reviewed and negative Cardiac: reports: Chest pain / pressure, Palpitations Respiratory: reports: Dyspnea GI: reports: Reviewed and negative : reports: Reviewed and negative Skin: reports: Reviewed and negative Musculoskeletal: reports: Reviewed and negative Neurologic: reports: Reviewed and negative Psychiatric: reports: Reviewed and negative Endocrine: reports: Reviewed and negative Immunocompromised: reports: Reviewed and negative PD PAST MEDICAL HISTORY - Past Medical History Cardiovascular: Atrial fibrillation Respiratory: None Neuro: None Endocrine/Autoimmune: HyPOthyroidism GI: GERD : None HEENT: None Psych: None Musculoskeletal: Chronic back pain Derm: None - Past Surgical History Past Surgical History: Yes - Present Medications Home Medications: Ambulatory Orders Medication Instructions Recorded Confirmed Ergocalciferol (Vitamin D2) 12/06/20 [Vitamin D2] Levothyroxine Sodium [Synthroid] 100 mcg PO DAILY 12/06/20 12/06/20 Omeprazole 40 mg PO DAILY 12/06/20 12/06/20 diltiaZEM [Cardizem] 60 mg PO BID #30 tablet 12/06/20 - Allergies Allergies/Adverse Reactions: Allergies Allergy/AdvReac Type Severity Reaction Status Date / Time No Known Drug Allergies Allergy Verified 12/05/20 22:21 - Social History Does the pt smoke?: Yes Smoking Status: Current every day smoker Does the pt drink ETOH?: Yes Does the pt have substance abuse?: No - Immunizations Immunizations are current?: No - POLST Patient has POLST: No PD ED PE NORMAL - Vitals Vital signs reviewed: Yes - General General: Alert and oriented X 3, No acute distress, Well developed/nourished - HEENT HEENT: Atraumatic, PERRL, EOMI, Moist mucous membranes - Neck Neck: Supple, no meningeal sign - Cardiac Cardiac: RRR, No murmur, Strong equal pulses - Respiratory Respiratory: No respiratory distress, Clear bilaterally - Abdomen Abdomen: Soft, Non tender, Non distended - Derm Derm: Warm and dry - Extremities Extremities: No deformity - Neuro Neuro: Alert and oriented X 3 - Psych Psych: Normal mood, Normal affect Results - Vitals Vitals: Vital Signs - 24 hr 12/06/20 12/06/20 12/06/20 02:37 02:50 04:10 Temperature 35.5 C L 36.5 C Heart Rate 84 86 86 Respiratory 20 14 19 Rate Blood Pressure 92/58 L 102/59 L 102/74 O2 Saturation 95 96 95 Oxygen O2 Source Room air - EKG (time done) 0308 Rate: Rate (enter#) (87) Rhythm: NSR [place]: Normal Intervals: Prolonged NM (borderline) QRS: Normal Ischemia: Normal ST segments Compare to prior EKG: Old EKG unavailable PD MEDICAL DECISION MAKING - ED course Complexity details: reviewed results, re-evaluated patient, considered differential, d/w patient ED course: Pt continued to improve in the ED, and spontaneously converted to NSR before he was able to receive the IV diltiazem ordered for him. Labs, including troponin, were normal. Pt was stable for d/c. We have discussed the usual indications for return. Departure - Departure Disposition: 01 Home, Self Care Clinical Impression: Palpitations Chest pain Qualifiers: Chest pain type: unspecified Qualified Code(s): R07.9 - Chest pain, unspecified Condition: Stable Instructions: ED Chest Pain Atypical Unkn Cause Prescriptions: diltiaZEM [Cardizem] 60 mg PO BID #30 tablet Discharge Date/Time: 12/06/20 04:11
[2020-12-06 04:11] VITALS: BP 102/74
--- NOTE | 2020-12-06 08:27 | XRAY Report ---
PROCEDURE: Chest 1 View X-Ray INDICATIONS: Chest Pain TECHNIQUE: One view of the chest was acquired. COMPARISON: 12/05/2020 02/22/2019. FINDINGS: Surgical changes and devices: None. Lungs and pleura: No pleural effusions or pneumothorax. Lungs are clear. Mediastinum: Mediastinal contours appear normal. Heart size is normal. Bones and chest wall: No suspicious bony lesions. Overlying soft tissues appear unremarkable. IMPRESSION: No acute cardiopulmonary disease process. Reviewed by: Imani Ramirez MD, PhD on 12/06/2020 8:26 AM PDT Approved by: Imani Ramirez MD, PhD on 12/06/2020 8:26 AM PDT Station ID: [id number]
== END 2020-12-06 04:11 | disposition home or self-care (01) ==
LOC: ED 02:18
DX: R07.89 Other chest pain (principal); R00.2 Palpitations; I48.91 Unspecified atrial fibrillation; Z79.01 Long term (current) use of anticoagulants; F17.200 Nicotine dependence, unspecified, uncomplicated
CPT/HCPCS: 71045; 93005; 99283; 99284; A9270; 80053; 83690; 83880; 84484; 85025

== ENCOUNTER 2021-05-17 08:30 | Outpatient (CLI) | payer MEDICARE, OTHER | END 2021-05-17 08:31 | disposition critical access hospital (66) | LOC: EMS 08:30 | DX: R00.2 Palpitations (principal); R07.89 Other chest pain | CPT/HCPCS: A0425; A0427 ==

== ENCOUNTER 2021-05-17 08:43 | Emergency (ER) | payer MEDICARE, OTHER ==
--- NOTE | 2021-05-17 08:50 | ED Physician Documentation ---
PD HPI CHEST PAIN - Stated complaint Stated Complaint: CHEST PX - History obtained from History obtained from: Patient - History of Present Illness Timing - onset: How many hours ago (04/07) Timing - onset during: Sleep, Rest Timing - duration: Hours (2) Timing - details: Abrupt onset, Now resolved (he had onset of fast/irreg heart rate about 7 am and it continued until EMS gave IV diltiazem. Feeling okay since and on arrival here. [place] similar to episodes of atrial fib in the past, but last episode was Dec 2020. No current meds for it.) Quality: Aching Location: Substernal Radiation: No: Jaw, Neck, Back Improved by: Other (diltiazem 25 mg IV by EMS.) Worsened by: No: Inspiration, Movement Associated symptoms: Palpitations (feeling of fast heart rate and EMS noted pt in fast atrial fib at 160s.) Similar symptoms before: Diagnosis (has had paroxysmal atrial fib few times. Last was Dec 2020 and at that time was on Diltiazem 60 mg BID. He states he has not taken that once it ran out a month later.) Recently seen: Not recently seen Review of Systems Constitutional: denies: Fever, Chills Nose: denies: Rhinorrhea / runny nose, Congestion Throat: denies: Sore throat Cardiac: denies: Pedal edema, Calf pain Respiratory: denies: Cough GI: denies: Abdominal Pain, Abdominal Swelling, Nausea, Vomiting Neurologic: reports: Generalized weakness. denies: Near syncope PD PAST MEDICAL HISTORY - Past Medical History Cardiovascular: Atrial fibrillation Respiratory: None Neuro: None Endocrine/Autoimmune: HyPOthyroidism GI: GERD : None HEENT: None Psych: None Musculoskeletal: Chronic back pain Derm: None - Past Surgical History Past Surgical History: Yes - Present Medications Home Medications: Ambulatory Orders Medication Instructions Recorded Confirmed Ergocalciferol (Vitamin D2) 12/06/20 [Vitamin D2] Levothyroxine Sodium [Synthroid] 100 mcg PO DAILY 12/06/20 12/06/20 Omeprazole 40 mg PO DAILY 12/06/20 12/06/20 diltiaZEM [Cardizem] 60 mg PO BID #30 tablet 12/06/20 diltiaZEM CD [Cardizem Cd] 120 mg PO ONCE 30 Days #30 cap 05/17/21 - Allergies Allergies/Adverse Reactions: Allergies Allergy/AdvReac Type Severity Reaction Status Date / Time No Known Drug Allergies Allergy Verified 05/17/21 08:50 - Living Situation Living Situation: reports: Alone Living Arrangement: reports: At home - Social History Does the pt smoke?: Yes Smoking Status: Current every day smoker Does the pt drink ETOH?: Yes ETOH Use: Beer (one daily) Does the pt have substance abuse?: No - Immunizations Immunizations are current?: No - POLST Patient has POLST: No PD ED PE NORMAL - Vitals Vital signs reviewed: Yes - General General: Alert and oriented X 3, No acute distress, Well developed/nourished, Other (obese) - Neck Neck: Supple, no meningeal sign, No adenopathy - Cardiac Cardiac: RRR, No murmur - Respiratory Respiratory: Clear bilaterally - Abdomen Abdomen: Soft, Non tender Results - Vitals Vitals: Vital Signs - 24 hr 05/17/21 05/17/21 05/17/21 08:45 09:25 10:00 Temperature 36.4 C L Heart Rate 80 65 68 Respiratory 26 H 16 13 Rate Blood Pressure 127/69 103/59 L 112/61 O2 Saturation 97 98 99 05/17/21 10:30 Temperature Heart Rate 67 Respiratory 14 Rate Blood Pressure 118/60 O2 Saturation 98 Oxygen O2 Source Room air - EKG (time done) 08:48 Rate: Rate (enter#) (62) Rhythm: NSR [place]: Normal Intervals: Normal [place] QRS: Poor R wave progression Ischemia: Normal ST segments. No: ST elevation c/w ischemia, ST depression PD MEDICAL DECISION MAKING - ED course Complexity details: reviewed old records ([facility] to get [facility] and labs drawn 4 days ago, as patient wished to not have lab tests redone.), reviewed results (recent labs from [facility] 4 days ago showed normal lytes and renal function. ), considered differential (episode of atrial fib per EMS rhythm strips which resolved with diltiazem IV. He is feeling fine now. ), d/w patient Departure - Departure Disposition: 01 Home, Self Care Clinical Impression: Paroxysmal atrial fibrillation with rapid ventricular response Condition: Stable Record reviewed to determine appropriate education?: Yes Instructions: ED Paroxysmal Atrial Flutter Follow-Up: DIMPLE BEDOYA DO [Primary Care Provider] - Prescriptions: diltiaZEM CD [Cardizem Cd] 120 mg PO ONCE 30 Days #30 cap Comments: Stay well-hydrated. Follow-up with your primary care regarding the blood test they did earlier in the week to ensure your electrolytes are doing okay. In December when you were here, your med list included a medication for heart rate called diltiazem. We have not gotten the medication list from the [facility] pharmacy or clinic as yet. Follow-up with your primary care, call them, or check your medications at home and see if you are still on that medication. If so then continue it. If you are not still on the diltiazem, I would suggest resuming that. I sent a prescription for 120 mg once daily to the [facility] pharmacy. Follow-up if needed for recurrent episodes. Discharge Date/Time: 05/17/21 10:39
--- NOTE | 2021-05-17 09:40 | XRAY Report ---
PROCEDURE: Chest 1 View X-Ray INDICATIONS: Chest Pain TECHNIQUE: One view of the chest was acquired. COMPARISON: Chest x-ray one view, 12/06/2020. FINDINGS: Surgical changes and devices: None. Lungs and pleura: No pleural effusions or pneumothorax. Lungs are clear. Mediastinum: Mediastinal contours appear normal. Heart size is normal. Bones and chest wall: No suspicious bony lesions. Overlying soft tissues appear unremarkable. IMPRESSION: No acute cardiopulmonary disease. Reviewed by: Jose Fajardo MD on 05/17/2021 9:39 AM PST Approved by: Jose Fajardo MD on 05/17/2021 9:39 AM PST Station ID: [id number]
[2021-05-17 10:39] VITALS: BP 118/60
== END 2021-05-17 10:39 | disposition home or self-care (01) ==
LOC: EDUNIT# → ED 08:43
DX: I48.20 Chronic atrial fibrillation, unspecified (principal); F17.200 Nicotine dependence, unspecified, uncomplicated
CPT/HCPCS: 80053; 83690; 83735; 83880; 84443; 85025; 93005; 99284

== ENCOUNTER 2022-02-07 23:30 | Emergency (ER) | payer MEDICARE, OTHER ==
--- NOTE | 2022-02-07 23:49 | ED Physician Documentation ---
PD HPI HEENT - Stated complaint Stated Complaint: LT EAR SWOLLEN, THROAT HURTS - Chief complaint Chief Complaint: Heent - History obtained from History obtained from: Patient - History of Present Illness Timing - onset: How many days ago (4) Timing - details: Gradual onset Location: Left ear Improves: Nothing Worsens: Other (no exacerbating symptoms) Associated symptoms: Congestion. No: Fever Similar symptoms before: Has not had sx before Recently seen: Not recently seen - Additional information Additional information: c/o 3-4 days of sore throat, sinus congestion, bilateral eye discharge, and for past 2 days has had increasing left ear pain. Denies dyspnea. He has mild cough past few days. Has not taken temperature at home but has not felt as though he has been having fevers Review of Systems Constitutional: reports: Fatigue. denies: Fever, Chills, Sweats Ears: reports: Ear pain Throat: reports: Sore throat Cardiac: reports: Reviewed and negative Respiratory: reports: Cough. denies: Dyspnea, Hemoptysis, Wheezing PD PAST MEDICAL HISTORY - Past Medical History Cardiovascular: Atrial fibrillation Respiratory: None Neuro: None Endocrine/Autoimmune: HyPOthyroidism GI: GERD : None HEENT: None Psych: None Musculoskeletal: Chronic back pain Derm: None - Past Surgical History Past Surgical History: Yes - Present Medications Home Medications: Ambulatory Orders Medication Instructions Recorded Confirmed Ergocalciferol (Vitamin D2) 12/06/20 [Vitamin D2] Levothyroxine Sodium [Synthroid] 100 mcg PO DAILY 12/06/20 12/06/20 Omeprazole 40 mg PO DAILY 12/06/20 12/06/20 diltiaZEM [Cardizem] 60 mg PO BID #30 tablet 12/06/20 diltiaZEM CD [Cardizem Cd] 120 mg PO ONCE 30 Days #30 cap 05/17/21 - Allergies Allergies/Adverse Reactions: Allergies Allergy/AdvReac Type Severity Reaction Status Date / Time No Known Drug Allergies Allergy Verified 02/07/22 23:47 - Social History Does the pt smoke?: Yes Smoking Status: Current every day smoker Does the pt drink ETOH?: Yes Does the pt have substance abuse?: No - Immunizations Immunizations are current?: No - POLST Patient has POLST: No PD ED PE NORMAL - Vitals Vital signs reviewed: Yes - General General: Alert and oriented X 3, No acute distress, Well developed/nourished - Neck Neck: Supple, no meningeal sign - Respiratory Respiratory: No respiratory distress, Clear bilaterally PD ED PE EXPANDED - HEENT HEENT: L TM red (trace left TM erythema but no loss of landmarks, not bulging), Moist mucous membranes, Pharyngeal erythema (trace posterior oropharyngeal erythema) - Eyes Eyes: Injected conj/sclera, Exudate (trace bilateral ) Results - Vitals Vitals: Vital Signs - 24 hr 02/07/22 02/07/22 02/08/22 23:45 23:55 01:05 Temperature 37.6 C Heart Rate 95 Respiratory 17 17 18 Rate Blood Pressure 117/65 O2 Saturation 94 02/08/22 02/08/22 02/08/22 01:36 02:17 02:29 Temperature 98.8 C H Heart Rate 96 Respiratory 16 17 17 Rate Blood Pressure 114/63 O2 Saturation 95 Oxygen O2 Source Room air - Labs Labs: Laboratory Tests 02/07/22 02/08/22 23:40 01:00 Nasal Adenovirus (PCR) NOT DETECTED Nasal B. parapertussis DNA (PCR) NOT DETECTED Nasal Coronavir 229E PCR NOT DETECTED Nasal Coronavir HKU1 PCR NOT DETECTED Nasal Coronavir NL63 PCR NOT DETECTED Nasal Coronavir OC43 PCR NOT DETECTED Nasal Enterovir/Rhinovir PCR NOT DETECTED Nasal Influenza B PCR NOT DETECTED Nasal Influenza A PCR NOT DETECTED Nasal Parainfluen 1 PCR NOT DETECTED Nasal Parainfluen 2 PCR NOT DETECTED Nasal Parainfluen 3 PCR NOT DETECTED Nasal Parainfluen 4 PCR NOT DETECTED Nasal RSV (PCR) DETECTED A Nasal B.pertussis DNA PCR NOT DETECTED Nasal C.pneumoniae (PCR) NOT DETECTED [place] Human Metapneumo PCR NOT DETECTED Nasal M.pneumoniae (PCR) NOT DETECTED Nasal SARS-CoV-2 (PCR) NOT DETECTED Group A Strep Rapid Negative PD MEDICAL DECISION MAKING - ED course Complexity details: reviewed results, re-evaluated patient, considered differential, d/w patient, d/w family ED course: rapid strep negative. Respiratory PCR is only positive for RSV (negative for other viruses tested including influenza, COVID). Lungs are CTA bilaterally. Results d/w patient. We discussed that there is no specific/targeted treatment for RSV (such as an antibiotic) and that the course is typically benign , particularly for adults. Return precautions discussed. Departure - Departure Disposition: 01 Home, Self Care Clinical Impression: Respiratory syncytial virus (RSV) infection Condition: Good Instructions: ED Viral Syndrome Comments: A nasal swab was done that tests for several types of viruses; your swab was positive for RSV. This is mostly seen in children. It typically causes upper respiratory and bronchitis symptoms. There is no specific treatment for it (such as an antibiotic); it should run its course over the next few days. Certainly, if you get worse, return to the emergency department for reevaluation. Otherwise, contact your primary care provider on Thursday to arrange for reevaluation within the next week. Your strep swab (throat swab) was negative for strep. If the next test (culture) comes up positive (takes 1-2 days), you will get a call from the ER and an antibiotic can be sent to your pharmacy. You will not be called if the result is negative. Discharge Date/Time: 02/08/22 02:30
[2022-02-08 00:10] LABS: RAPID STREP SCREEN Negative (Negative)
[2022-02-08 01:37] VITALS: BP 114/63
[2022-02-08 02:02] LABS: B. PARAPERTUSSIS- RESP PCR PAN NOT DETECTED; B. PERTUSSIS- RESP PCR PANEL NOT DETECTED; C. PNEUMONIAE- RESP PCR PANEL NOT DETECTED; CORONAVIRUS 229E-RESP PCR NOT DETECTED; CORONAVIRUS HKU1-RESP PCR NOT DETECTED; CORONAVIRUS NL63-RESP PCR NOT DETECTED; CORONAVIRUS OC43-RESP PCR NOT DETECTED; HUMAN METAPNEUMOVIRUS NOT DETECTED; INFLUENZA A- RESP PCR PANEL NOT DETECTED; INFLUENZA B - RESP PCR PANEL NOT DETECTED; M. PNEUMONIAE- RESP PCR PANEL NOT DETECTED; PARAINFLUENZA VIRUS 1 NOT DETECTED; PARAINFLUENZA VIRUS 2 NOT DETECTED; PARAINFLUENZA VIRUS 3 NOT DETECTED; PARAINFLUENZA VIRUS 4 NOT DETECTED; RHINOVIRUS/ENTEROVIRUS NOT DETECTED; RSV- RESP PCR PANEL DETECTED; SARS-CoV-2 -RESP PCR PANEL NOT DETECTED
== END 2022-02-08 02:30 | disposition home or self-care (01) ==
LOC: ED 23:30
DX: R07.0 Pain in throat (principal); R09.81 Nasal congestion; B97.4 Respiratory syncytial virus as the cause of diseases classified elsewhere; I48.91 Unspecified atrial fibrillation; F17.200 Nicotine dependence, unspecified, uncomplicated; Z20.822 Contact with and (suspected) exposure to COVID-19
CPT/HCPCS: 87070; 87430; 87633; 99282; 99283

== ENCOUNTER 2022-06-15 20:47 | Emergency (ER) | payer MEDICARE, OTHER ==
[2022-06-15 20:58] VITALS: BP 132/59
--- NOTE | 2022-06-15 21:06 | ED Physician Documentation ---
PD HPI MALE - Stated complaint Stated Complaint: CONSTIPATED - Chief complaint Chief Complaint: Abd Pain - History obtained from History obtained from: Patient - Additional information Additional information: 71-year-old gentleman who ate too many Tootsie Roll's 5 days ago and subsequently has not pooped since. He has not tried anything at home such as a laxative for it, but he did try a glass of hot water just prior to arrival. This did not result in a bowel movement. He has some abdominal cramping. No nausea. PD PAST MEDICAL HISTORY - Past Medical History Cardiovascular: Atrial fibrillation Respiratory: None Neuro: None Endocrine/Autoimmune: HyPOthyroidism GI: GERD : None HEENT: None Psych: None Musculoskeletal: Chronic back pain Derm: None - Past Surgical History Past Surgical History: Yes - Present Medications Home Medications: Ambulatory Orders Medication Instructions Recorded Confirmed Ergocalciferol (Vitamin D2) 12/06/20 [Vitamin D2] Levothyroxine Sodium [Synthroid] 100 mcg PO DAILY 12/06/20 12/06/20 Omeprazole 40 mg PO DAILY 12/06/20 12/06/20 diltiaZEM [Cardizem] 60 mg PO BID #30 tablet 12/06/20 diltiaZEM CD [Cardizem Cd] 120 mg PO ONCE 30 Days #30 cap 05/17/21 polyethylene glycoL 3350(BULK) 17 gm PO DAILY PRN #1 each 06/15/22 [Miralax] - Allergies Allergies/Adverse Reactions: Allergies Allergy/AdvReac Type Severity Reaction Status Date / Time No Known Drug Allergies Allergy Verified 06/15/22 20:58 - Social History Does the pt smoke?: Yes Smoking Status: Current every day smoker Does the pt drink ETOH?: Yes Does the pt have substance abuse?: No - Immunizations Immunizations are current?: No - POLST Patient has POLST: No PD ED PE NORMAL - Vitals Vital signs reviewed: Yes - General General: Alert and oriented X 3, No acute distress - Abdomen Abdomen: Normal bowel sounds, Soft, Non tender - Rectal Rectal: Other (Soft fecal impaction in the rectum, fleets enema placed during exam.) - Neuro Neuro: Alert and oriented X 3, Normal speech Results - Vitals Vitals: Vital Signs - 24 hr 06/15/22 20:52 Temperature 36.4 C L Heart Rate 88 Respiratory 17 Rate Blood Pressure 132/59 H O2 Saturation 98 Oxygen O2 Source Room air PD Medical Decision Making - ED course ED course: 71-year-old gentleman presents with constipation and fecal impaction. An enema here was modestly successful. And treated further with oral laxatives with close return precautions. Departure - Departure Disposition: 01 Home, Self Care Clinical Impression: Fecal impaction Constipation Qualifiers: Constipation type: unspecified constipation type Qualified Code(s): K59.00 - Constipation, unspecified Condition: Good Record reviewed to determine appropriate education?: Yes Instructions: ED Constipation Prescriptions: polyethylene glycoL 3350(BULK) [Miralax] 17 gm PO DAILY PRN #1 each PRN Reason: Constipation Comments: You were seen today for constipation, you received an enema and then some oral laxatives. Return if not better tomorrow. Sooner if worse. Next time you get constipated reasonable to take MiraLAX which I have written a prescription for but is also available [id number]. Follow-up with your primary care physician, next available appointment.
[2022-06-15] MEDS ORDERED: LACTULOSE 10 GM /15 ML UDC PO STA (21:40)
[2022-06-15] MEDS ORDERED: bisacodyL 5 MG TABLET PO STA (21:40)
[2022-06-15] MEDS ORDERED: IBUPROFEN 800 MG TABLET PO STA (21:40)
== END 2022-06-15 21:55 | disposition home or self-care (01) ==
LOC: ED 20:47
DX: K56.41 Fecal impaction (principal); F17.200 Nicotine dependence, unspecified, uncomplicated
CPT/HCPCS: 99282; 99283; A9270

== ENCOUNTER 2022-08-24 17:55 | Emergency (ER) | payer MEDICARE, OTHER ==
[2022-08-24] MEDS ORDERED: SODIUM CHLORIDE 0.9% 1,000 ML IV STA ×5 (18:20→23:40)
--- NOTE | 2022-08-24 18:25 | ED Physician Documentation ---
History of Present Illness - Stated complaint Stated Complaint: SOA - Chief complaint Chief Complaint: Abd Pain - History obtained from History obtained from: Patient, Family - History of Present Illness Pain level max: 3 Pain level now: 0 - Additonal information Additional information: Patient is a 71-year-old male who presents to the emergency department complaining of increasing weakness and shortness of breath over the past several days. His family states that he has appeared yellow for the past month or so. Patient states occasionally has abdominal pain, mainly in the right upper quadrant, no pain currently. No fevers. No cough. No chills. No chest pain. Has had swelling to the bilateral lower extremities. Denies any history of liver issues or heart issues. He states he has never had a colonoscopy. He has never had any abdominal surgeries. Patient states that he has never been a heavy drinker. He denies any significant Tylenol use. Patient does state that he has had occasional chills, also right upper quadrant abdominal pain 2 days ago, none since Review of Systems Constitutional: denies: Fever, Chills Cardiac: denies: Chest pain / pressure, Palpitations Respiratory: reports: Dyspnea (Patient states he feels short of breath, especially with exertion). denies: Cough GI: denies: Vomiting, Diarrhea, Hematemesis, Bloody / black stool : denies: Dysuria, Frequency, Hesitancy Skin: denies: Rash Musculoskeletal: denies: Neck pain, Back pain Neurologic: reports: Generalized weakness. denies: Focal weakness, Numbness, Headache PD PAST MEDICAL HISTORY - Past Medical History Cardiovascular: Atrial fibrillation Respiratory: None Neuro: None Endocrine/Autoimmune: HyPOthyroidism GI: GERD : None HEENT: None Psych: None Musculoskeletal: Chronic back pain Derm: None - Past Surgical History Past Surgical History: Yes - Present Medications Home Medications: Ambulatory Orders Medication Instructions Recorded Confirmed Ergocalciferol (Vitamin D2) 12/06/20 [Vitamin D2] Levothyroxine Sodium [Synthroid] 100 mcg PO DAILY 12/06/20 12/06/20 Omeprazole 40 mg PO DAILY 12/06/20 12/06/20 diltiaZEM [Cardizem] 60 mg PO BID #30 tablet 12/06/20 diltiaZEM CD [Cardizem Cd] 120 mg PO ONCE 30 Days #30 cap 05/17/21 polyethylene glycoL 3350(BULK) 17 gm PO DAILY PRN #1 each 06/15/22 [Miralax] - Allergies Allergies/Adverse Reactions: Allergies Allergy/AdvReac Type Severity Reaction Status Date / Time No Known Drug Allergies Allergy Verified 08/24/22 18:08 - Social History Does the pt smoke?: Yes Smoking Status: Current every day smoker Does the pt drink ETOH?: Yes Does the pt have substance abuse?: No - Immunizations Immunizations are current?: No - POLST Patient has POLST: No PD ED PE NORMAL - Vitals Vital signs reviewed: Yes - General General: Alert and oriented X 3, No acute distress, Other (Jaundiced male) - HEENT HEENT: PERRL, Moist mucous membranes - Neck Neck: Supple, no meningeal sign - Cardiac Cardiac: Other (Irregularly irregular) - Respiratory Respiratory: No respiratory distress, Clear bilaterally - Abdomen Abdomen: Soft, Non tender, Non distended - Back Back: No CVA TTP, No spinal TTP - Derm Derm: Warm and dry - Extremities Extremities: Other (2+ bilateral lower extremity pitting edema.) - Neuro Neuro: Alert and oriented X 3 - Psych Psych: Normal mood, Normal affect Results - Vitals Vitals: Vital Signs - 24 hr 08/24/22 08/24/22 08/24/22 18:00 18:07 18:37 Temperature 36.2 C L Heart Rate 90 77 76 Respiratory 20 20 17 Rate Blood Pressure 68/32 L 71/53 L 85/40 L O2 Saturation 95 98 96 08/24/22 08/24/22 08/24/22 19:15 19:30 20:00 Temperature Heart Rate 76 73 74 Respiratory 20 16 18 Rate Blood Pressure 87/39 L 90/70 92/43 L O2 Saturation 100 96 94 08/24/22 08/24/22 08/24/22 20:30 21:09 21:30 Temperature Heart Rate 77 75 73 Respiratory 18 20 20 Rate Blood Pressure 94/40 L 95/51 L 91/44 L O2 Saturation 96 94 94 08/24/22 22:00 Temperature Heart Rate 73 Respiratory 20 Rate Blood Pressure 104/34 L O2 Saturation 93 Oxygen O2 Source Room air - EKG (time done) 1831 EKG releavant findings:: EKG personally interpreted by author of this note. Relevant findings are: Rate: Rate (enter#) (76) Rhythm: NSR Colliers: LAD Intervals: 1st degree AVB QRS: Normal Ischemia: Normal ST segments, Q waves (V5-6) - Labs Labs: Laboratory Tests 08/24/22 08/24/22 08/24/22 18:15 18:15 18:15 WBC 23.4 H RBC 4.02 L Hgb 13.6 L Hct 40.9 L MCV 101.7 H MCH 33.8 H MCHC 33.3 RDW 16.4 H Plt Count 169 MPV 11.2 Neut # (Auto) Not Reportable Lymph # (Auto) Not Reportable Eddy # (Auto) Not Reportable Eos # (Auto) Not Reportable Baso # (Auto) Not Reportable Absolute Nucleated RBC Not Reportable Band Neuts % (Manual) Not Reportable Abnorm Lymph % (Manual) Not Reportable Nucleated RBC % Not Reportable Neutrophils # (Manual) Not Reportable Lymphocytes # (Manual) Not Reportable Monocytes # (Manual) Not Reportable Eosinophils # (Manual) Not Reportable Basophils # (Manual) Not Reportable Differential Comment MANUAL DIFFERENTIAL WBC Morphology 1+ TOXIC GRANULATION Platelet Estimate NORMAL (130-450,000) Platelet Morphology NORMAL APPEARANCE RBC Morph Micro Appear 1+ ANISOCYTOSIS PT 23.2 H INR 2.2 H APTT 33.5 H Sodium 134 L Potassium 4.7 Chloride 95 L Carbon Dioxide 20 L Anion Gap 19.0 H BUN 29 H Creatinine 2.5 H Estimated GFR (MDRD) 26 L Glucose 92 Lactic Acid Calcium 8.4 L Total Bilirubin 4.8 H AST 62 H ALT 32 Alkaline Phosphatase 49 Ammonia Troponin I High Sens B-Natriuretic Peptide Total Protein 6.2 L Albumin 2.4 L Globulin 3.8 Albumin/Globulin Ratio 0.6 L Lipase 31 Acetaminophen Ethyl Alcohol 08/24/22 08/24/22 08/24/22 18:15 18:15 18:15 WBC RBC Hgb Hct MCV MCH MCHC RDW Plt Count MPV Neut # (Auto) Lymph # (Auto) Eddy # (Auto) Eos # (Auto) Baso # (Auto) Absolute Nucleated RBC Band Neuts % (Manual) Abnorm Lymph % (Manual) Nucleated RBC % Neutrophils # (Manual) Lymphocytes # (Manual) Monocytes # (Manual) Eosinophils # (Manual) Basophils # (Manual) Differential Comment WBC Morphology Platelet Estimate Platelet Morphology RBC Morph Micro Appear PT INR APTT Sodium Potassium Chloride Carbon Dioxide Anion Gap BUN Creatinine Estimated GFR (MDRD) Glucose Lactic Acid Calcium Total Bilirubin AST ALT Alkaline Phosphatase Ammonia Troponin I High Sens 7.7 B-Natriuretic Peptide 186 H Total Protein Albumin Globulin Albumin/Globulin Ratio Lipase Acetaminophen < 10 L Ethyl Alcohol < 5.0 08/24/22 08/24/22 18:15 20:27 WBC RBC Hgb Hct MCV MCH MCHC RDW Plt Count MPV Neut # (Auto) Lymph # (Auto) Eddy # (Auto) Eos # (Auto) Baso # (Auto) Absolute Nucleated RBC Band Neuts % (Manual) Abnorm Lymph % (Manual) Nucleated RBC % Neutrophils # (Manual) Lymphocytes # (Manual) Monocytes # (Manual) Eosinophils # (Manual) Basophils # (Manual) Differential Comment WBC Morphology Platelet Estimate Platelet Morphology RBC Morph Micro Appear PT INR APTT Sodium Potassium Chloride Carbon Dioxide Anion Gap BUN Creatinine Estimated GFR (MDRD) Glucose Lactic Acid 5.7 H* Calcium Total Bilirubin AST ALT Alkaline Phosphatase Ammonia 24.1 Troponin I High Sens B-Natriuretic Peptide Total Protein Albumin Globulin Albumin/Globulin Ratio Lipase Acetaminophen Ethyl Alcohol - Rads (name of study) Right upper quadrant ultrasound Relevant Findings:: Final report received, See rad report CT abdomen pelvis Relevant Findings:: Final report received, Discussed with rads, See rad report CT chest Relevant Findings:: Final report received, See rad report Head CT Relevant Findings:: Final report received, See rad report PD Medical Decision Making - ED course Complexity details: reviewed results, re-evaluated patient, considered differential, d/w patient, d/w family, d/w automotive service consultant ED course: Patient is a 71-year-old male brought into the emergency department for dyspnea. His chest x-ray does not show any significant abnormalities, possible mild atypical pneumonia. CT scan of the chest, abdomen pelvis were performed without contrast secondary to acute renal insufficiency/acute renal failure. CT chest shows bibasilar dependent atelectasis, prominent pulmonary outflow tract, yoder ggesting pulmonary hypertension. Mild cardiomegaly. CT abdomen pelvis show cirrhotic appearing liver with findings compatible with portal hypertension. Cholelithiasis, contracted gallbladder. Large amount of ascites. Segmental wall thickening involving loop of bowel in the mid abdomen, probably segment of distal ileal loop, infectious etiology favored. Diffuse body wall edema consistent with anasarca. Right upper quadrant ultrasound is severely limited, liver demonstrates coarsened echotexture suspicious for hepatocellular disease such as hepatitis. Nonvisualization of the gallbladder and common bile duct and pancreas. Moderate amount of ascites. CT head does not show any acute abnormalities. Labs are significant for leukocytosis, 23,000. No significant anemia. No significant thrombocytopenia. MCV is elevated at 101. INR is 2.2, patient states he is not on anticoagulants. Lactate is elevated at 5.7, unclear if this is due to infection or liver disease. Bilirubin elevated at 4.8. AST is 62, ALT 32 and alk phos 39. BNP is also elevated at 186. High sensitive troponin is negative. Ammonia is negative. Elevated anion gap at 19. Elevated BUN at 29. Elevated creatinine at 2.5, baseline is around 0.8-1. Unclear etiology of the patient's constellation of symptoms. Ascending cholangitis is in the differential Given his chills, right upper quadrant pain 2 days ago, elevated bilirubin and leukocytosis. Blood cultures were drawn. IV fluids given and blood pressure increased from 68/30 to 104/40. Mental status did improve. He initially was drowsy and mildly confused. He was also given Zosyn IV. We will continue this. There are no beds available in the region currently, we are continuing to look for a bed. The patient will likely need cardiology, infectious disease and GI. Will likely need a tertiary center. Patient signed out to the [facility] emergency department physician. This document was made in part using voice recognition software. While efforts are made to proofread this document, sound alike and grammatical errors may occur. Departure - Departure Disposition: 02 Transfer Acute Care Hosp Clinical Impression: Hyperbilirubinemia, Pulmonary hypertension Leukocytosis Qualifiers: Leukocytosis type: unspecified Qualified Code(s): D72.829 - Elevated white blood cell count, unspecified Hypotension Qualifiers: Hypotension type: unspecified hypotension type Qualified Code(s): I95.9 - Hypotension, unspecified Acute renal failure Qualifiers: Acute renal failure type: unspecified Qualified Code(s): N17.9 - Acute kidney failure, unspecified Condition: Stable
[2022-08-24 18:27] LABS: BASOPHILS % (AUTO) 0.6 %; HCT - HEMATOCRIT 40.9 % (42.0-52.0); HGB - HEMOGLOBIN 13.6 g/dL (14.0-18.0); LYMPHOCYTES % (AUTO) 5.2 %; MEAN CORPUSCULAR HEMOGLOBIN 33.8 pg (27.0-31.0); MEAN CORPUSCULAR HGB CONC 33.3 g/dL (32.0-36.0); MEAN CORPUSCULAR VOLUME 101.7 fL (80.0-94.0); MEAN PLATELET VOLUME 11.2 fL (7.4-11.4); PLT - PLATELET COUNT 169 10^3/uL (130-450); RED BLOOD COUNT 4.02 10^6/uL (4.70-6.10); RED CELL DISTRIBUTION WIDTH 16.4 % (12.0-15.0); WHITE BLOOD COUNT 23.4 x10^3/uL (4.8-10.8)
[2022-08-24 18:32] LABS: INR 2.2 (0.8-1.2); PT - PROTHROMBIN TIME 23.2 secs (9.9-12.6)
[2022-08-24 18:34] LABS: ALBUMIN 2.4 g/dL (3.2-5.5); ALBUMIN/GLOBULIN RATIO 0.6 (1.0-2.2); BILIRUBIN,TOTAL 4.8 mg/dL (0.2-1.0); CALCIUM 8.4 mg/dL (8.5-10.3); CREATININE 2.5 mg/dL (0.6-1.2); POTASSIUM 4.7 mmol/L (3.5-5.0); TOTAL PROTEIN 6.2 g/dL (6.7-8.2)
[2022-08-24 18:39] LABS: PARTIAL THROMBOPLASTIN TIME 33.5 secs (24.9-33.3)
--- NOTE | 2022-08-24 18:41 | XRAY Report ---
PROCEDURE: Chest 1 View X-Ray INDICATIONS: dyspnea TECHNIQUE: One view of the chest was acquired. COMPARISON: 05/17/2021 FINDINGS: Surgical changes and devices: None. Lungs and pleura: No pleural effusions or pneumothorax. Mild diffuse reticulonodular pulmonary opaci ty. Mediastinum: Mediastinal contours appear normal. Heart size is normal. Bones and chest wall: No suspicious bony lesions. Overlying soft tissues appear unremarkable. IMPRESSION: Mild atypical pneumonia. Reviewed by: Camila Sánchez MD on 08/24/2022 5:40 PM AKDT Approved by: Camila Sánchez MD on 08/24/2022 5:40 PM AKDT Station ID: [id number]
[2022-08-24 18:47] LABS: PLATELET ESTIMATE, MANUAL NORMAL (130-450,000) (NORMAL); PLATELET MORPHOLOGY NORMAL APPEARANCE (NORMAL); RBC MORPHOLOGY (MULTIPLE) 1+ ANISOCYTOSIS (NORMAL); WBC MORPHOLOGY (MULTIPLE) 1+ TOXIC GRANULATION (NORMAL)
[2022-08-24 18:48] LABS: DIFFERENTIAL COMMENT MANUAL DIFFERENTIAL
[2022-08-24 19:22] LABS: ACETAMINOPHEN < 10 ug/mL (10-30); ETOH - ETHANOL < 5.0 mg/dL
--- NOTE | 2022-08-24 20:15 | CT Report ---
PROCEDURE: CHEST WO INDICATIONS: new onset jaundice and renal failure TECHNIQUE: Noncontrast 1mm axial images were acquired from the pulmonary apices to the posterior costophrenic an gles. Axial 5 mm soft tissue kernel reconstructions were performed as well as 8 mm axial MIP and cor onal and sagittal 5 mm reformations. For radiation dose reduction, the following was used: automate d exposure control, adjustment of mA and/or kV according to patient size. COMPARISON: CT chest anterior with and without, 04/25/2014. FINDINGS: Image quality: Excellent. Lungs and pleura: There are respiratory motion artifacts. Bibasilar dependent atelectasis. No consoli dation. No pleural effusions. No pneumothorax. No suspicious pulmonary nodules which require follow up. Mediastinum: Heart is mildly enlarged. No pericardial effusions. No mediastinal adenopathy by size cr iteria. The pulmonary outflow tract is mildly dilated measuring up to 3.7 cm, but unchanged from the last exam. Aorta is normal in caliber. Chest wall and lower neck: Thyroid is not visualized. No axillary or supraclavicular adenopathy by si ze. Bones: No aggressive osseous abnormality. Upper Abdomen: Please see separate CT abdomen report. IMPRESSION: 1. Bibasilar dependent atelectasis. 2. Prominent pulmonary outflow tract suggesting pulmonary hypertension. The finding is unchanged from the last exam. 3. Mild cardiomegaly. Reviewed by: Jose Fajardo MD on 08/24/2022 8:14 PM PDT Approved by: Jose Fajardo MD on 08/24/2022 8:14 PM PDT Station ID: [id number]
--- NOTE | 2022-08-24 20:24 | Ultrasound Report ---
PROCEDURE: Abdomen Limited INDICATIONS: painless jaundice TECHNIQUE: Real-time focused scanning was performed of the abdomen, with image documentation. COMPARISONS: CT abdomen and pelvis, 08/24/2022. FINDINGS: Liver: Liver is normal in size and demonstrates coarse echotexture. Gallbladder: Not visualized. Biliary ducts: Intrahepatic bile ducts are non-dilated. Extrahepatic bile duct caliber is not visua lized.. Pancreas: Not visualized. Miscellaneous: There is free abdominal fluid in all 4 quadrants. IMPRESSION: 1. Severely limited examination. 2. Liver demonstrates coarse echotexture suspicious for hepatocellular disease such as hepatitis. Rec ommend correlation with liver function tests. 3. Nonvisualization of gallbladder, common bile duct and pancreas. 4. Moderate amount of ascites in all 4 quadrants. Reviewed by: Jose Fajardo MD on 08/24/2022 8:22 PM PDT Approved by: Jose Fajardo MD on 08/24/2022 8:22 PM PDT Station ID: [id number]
[2022-08-24] MEDS ORDERED: PIPERACILLIN/TAZOBACTAM 4.5 GM in SODIUM CHLORIDE 0.9% MINIBAG 100 ML IV STA (20:45)
--- NOTE | 2022-08-24 20:48 | CT Report ---
PROCEDURE: ABDOMEN/PELVIS WO INDICATIONS: new onset jaundice and renal failure TECHNIQUE: Noncontrast 5 mm thick sections acquired from the diaphragms to the symphysis. 5 mm coronal and sagi ttal reformats were then performed. For radiation dose reduction, the following was used: automated exposure control, adjustment of mA and/or kV according to patient size. COMPARISON: None. FINDINGS: Image quality: Excellent. Lung bases and heart: Please see separate CT chest report. Liver: Liver is small with nodular contour consistent with cirrhosis. Gallbladder and biliary tree: Bladder is contracted. There are gallstones. Spleen: No splenomegaly. Pancreas: No pancreatic ductal dilation. Adrenals: No adrenal nodule. Kidneys and ureters: No hydronephrosis. No renal cystic lesion which requires follow up. No solid mas s. Bowel and peritoneum: Stomach is unremarkable. Small bowel loops are normal in caliber. There is segm ental wall thickening involving involving the bowel loops in the mid abdomen (series 5 image 60; seri es 8 image 21), probably a segment of distal small intestine. There is a large amount of peritoneal f luid. No free air. Lymph nodes: No central or retroperitoneal adenopathy. Vessels: No infrarenal aortic aneurysm. Recannulized umbilical vein consistent with portal hypertensi on. PELVIS Reproductive organs: Unremarkable. Bladder: No abnormal wall thickening, accounting for underdistension. Pelvic lymph nodes: No pelvic adenopathy by size criteria. Bones: No aggressive osseous abnormality. Other: No significant ventral or inguinal hernia. There is diffuse body wall edema consistent with an asarca. IMPRESSION: Limited examination without intravenous contrast. 1. Cirrhotic liver with findings compatible with portal hypertension. 2. Cholelithiasis. There is contracted. There is no intrahepatic or intrahepatic biliary dilation. Co nsider MRCP if there is clinical suspicion for biliary obstruction. 3. A large amount of ascites. 4. Segmental wall thickening involving a loop of bowel in the mid abdomen, probably a segment of dist al ileal loop. Infectious etiology is favored. Differential diagnoses are inflammatory bowel disease and neoplasm. 5. Diffuse body wall edema consistent with anasarca. Reviewed by: Jose Fajardo MD on 08/24/2022 8:47 PM PDT Approved by: Jose Fajardo MD on 08/24/2022 8:47 PM PDT Station ID: [id number]
[2022-08-24] MEDS ORDERED: PHYTONADIONE 10 MG/ML AMP SUBQ STA (21:04)
--- NOTE | 2022-08-24 21:42 | CT Report ---
PROCEDURE: HEAD WO INDICATIONS: altered mental status TECHNIQUE: Noncontrast 4.5 mm thick angled axial sections acquired from the foramen magnum to the vertex. For r adiation dose reduction, the following was used: automated exposure control, adjustment of mA and/or kV according to patient size. COMPARISON: None. FINDINGS: Image quality: Excellent. CSF spaces: Basal cisterns are patent. No extra-axial fluid collections. Ventricles are normal in size and shape. Brain: No intracranial hemorrhage, mass, or mass effect. Latham-white matter interface appears preser maicol. Skull and face: Calvarium and visualized facial bones are intact, without suspicious lesions. Sinuses: Visualized sinuses and mastoids are clear. IMPRESSION: 1. No acute intracranial abnormality. Reviewed by: Gene Gerard MD on 08/24/2022 9:41 PM PDT Approved by: Gene Gerard MD on 08/24/2022 9:41 PM PDT Station ID: [id number]
[2022-08-24] MEDS ORDERED: PIPERACILLIN/TAZOBACTAM 3.375 GM in SODIUM CHLORIDE 0.9% MINIBAG 100 ML IV SCH (23:00)
[2022-08-24 23:07] LABS: BASOPHILS # (AUTO) 0.1 10^3/uL (0.0-0.1); BASOPHILS % (AUTO) 0.3 %; HCT - HEMATOCRIT 39.2 % (42.0-52.0); LYMPHOCYTES # (AUTO) 1.3 10^3/uL (1.5-3.5); LYMPHOCYTES % (AUTO) 5.6 %; MEAN CORPUSCULAR HEMOGLOBIN 34.2 pg (27.0-31.0); MEAN CORPUSCULAR HGB CONC 33.2 g/dL (32.0-36.0); MEAN CORPUSCULAR VOLUME 103.2 fL (80.0-94.0); MEAN PLATELET VOLUME 11.2 fL (7.4-11.4); MONOCYTES # (AUTO) 1.6 10^3/uL (0.0-1.0); MONOCYTES % (AUTO) 7.2 %; NEUTROPHILS # (AUTO) 19.1 10^3/uL (1.5-6.6); PLT - PLATELET COUNT 148 10^3/uL (130-450); RED CELL DISTRIBUTION WIDTH 16.3 % (12.0-15.0); WHITE BLOOD COUNT 22.2 x10^3/uL (4.8-10.8)
[2022-08-24 23:18] LABS: ALBUMIN 2.3 g/dL (3.2-5.5); ALBUMIN/GLOBULIN RATIO 0.7 (1.0-2.2); BILIRUBIN,TOTAL 4.5 mg/dL (0.2-1.0); CALCIUM 7.9 mg/dL (8.5-10.3); CREATININE 2.3 mg/dL (0.6-1.2); POTASSIUM 4.6 mmol/L (3.5-5.0); TOTAL PROTEIN 5.6 g/dL (6.7-8.2)
[2022-08-24 23:35] LABS: DIFFERENTIAL COMMENT MANUAL=AUTO DIFF; PLATELET ESTIMATE, MANUAL NORMAL (130-450,000) (NORMAL); PLATELET MORPHOLOGY NORMAL APPEARANCE (NORMAL); RBC MORPHOLOGY (MULTIPLE) NORMAL APPEARANCE (NORMAL); WBC MORPHOLOGY (MULTIPLE) NORMAL APPEARANCE (NORMAL)
[2022-08-24 23:42] LABS: B. PARAPERTUSSIS- RESP PCR PAN NOT DETECTED; B. PERTUSSIS- RESP PCR PANEL NOT DETECTED; C. PNEUMONIAE- RESP PCR PANEL NOT DETECTED; CORONAVIRUS 229E-RESP PCR NOT DETECTED; CORONAVIRUS HKU1-RESP PCR NOT DETECTED; CORONAVIRUS NL63-RESP PCR NOT DETECTED; CORONAVIRUS OC43-RESP PCR NOT DETECTED; HUMAN METAPNEUMOVIRUS NOT DETECTED; INFLUENZA A- RESP PCR PANEL NOT DETECTED; INFLUENZA B - RESP PCR PANEL NOT DETECTED; M. PNEUMONIAE- RESP PCR PANEL NOT DETECTED; PARAINFLUENZA VIRUS 1 NOT DETECTED; PARAINFLUENZA VIRUS 2 NOT DETECTED; PARAINFLUENZA VIRUS 3 NOT DETECTED; PARAINFLUENZA VIRUS 4 NOT DETECTED; RHINOVIRUS/ENTEROVIRUS NOT DETECTED; RSV- RESP PCR PANEL NOT DETECTED; SARS-CoV-2 -RESP PCR PANEL NOT DETECTED
[2022-08-25] MEDS ORDERED: SODIUM CHLORIDE 0.9% 1,000 ML IV STA (00:10)
[2022-08-25] MEDS ORDERED: VANCOMYCIN INJ 1 GM in SODIUM CHLORIDE 0.9% 500 ML IV STA (00:34)
[2022-08-25] MEDS ORDERED: ALBUMIN 25% 12.5 GM/50 ML VIAL IV STA (00:37)
[2022-08-25] MEDS ORDERED: VANCOMYCIN 1 GM VIAL ONE (00:48)
[2022-08-25 00:57] VITALS: BP 92/38
--- NOTE | 2022-08-25 00:57 | ED Physician Documentation ---
ED Addendum - Addendum Addendum: Patient signed out to me by Dr. Ramirez. Patient is boarding in the emergency department awaiting transfer. He appears to be septic with hypotension and concerns for intra-abdominal source. He has been started on Zosyn. He did respond to fluid boluses. 2339 - D/W Dr. Miles ([facility], Hospitalist) - Accepts the patient for transfer.I did update the patient and the family member regarding the plan to transport to [facility]. Ground transport is not able to be here for several hours so requested the patient be transferred by air. Patient has been off fluids for a bit of time and his pressures have started to decrease again. I have requested for additional fluids and to start Levophed. Will reach back out to [facility] as I feel that this patient needs an ICU bed. [facility] is at the bedside. 1228 - D/W Dr. Valadez ([facility], ICU). Accepts the patient for transfer. Recommends also broadening his antibiotics with A dose of vancomycin. Also recommends a dose of albumin. Departure - Departure Disposition: 02 Transfer Acute Care Hosp Clinical Impression: Hyperbilirubinemia, Pulmonary hypertension Leukocytosis Qualifiers: Leukocytosis type: unspecified Qualified Code(s): D72.829 - Elevated white blood cell count, unspecified Hypotension Qualifiers: Hypotension type: unspecified hypotension type Qualified Code(s): I95.9 - Hypotension, unspecified Acute renal failure Qualifiers: Acute renal failure type: unspecified Qualified Code(s): N17.9 - Acute kidney failure, unspecified Condition: Critical
[2022-08-25] MEDS ORDERED: NOREPINEPHRINE/D5W 8 MG/250 ML BAG IV SCH ×2 (01:00→12:34)
[2022-08-25] MEDS ORDERED: PIPERACILLIN/TAZOBACTAM 3.375 GM in SODIUM CHLORIDE 0.9% MINIBAG 100 ML IV SCH (03:45)
[2022-08-26 06:10] LABS: HBsAG SCREEN Negative (Negative); HCV AB Non Reactive (Non Reactive); HEPATITIS B CORE IGM AB Negative (Negative)
== END 2022-08-25 01:52 | disposition short-term general hospital (02) ==
LOC: ED 17:55
DX: A41.9 Sepsis, unspecified organism (principal); R65.20 Severe sepsis without septic shock; I95.9 Hypotension, unspecified; E80.6 Other disorders of bilirubin metabolism; I27.20 Pulmonary hypertension, unspecified; D72.829 Elevated white blood cell count, unspecified; N17.9 Acute kidney failure, unspecified; F17.200 Nicotine dependence, unspecified, uncomplicated; Z20.822 Contact with and (suspected) exposure to COVID-19; I51.7 Cardiomegaly; K80.20 Calculus of gallbladder without cholecystitis without obstruction; R18.8 Other ascites
CPT/HCPCS: 36415; 70450; 71045; 71250; 74176; 76705; 80053; 80074; 80307; 82140; 83605; 83690; 83880; 84484; 85025; 85610; 85730; 87040; 87150; 87181; 87633; 93005; 96361; 96365; 96372; 96375; 99284; 99285; G0480; J3370; P9047; 80320